=== PATIENT | female | born 1990 | race Caucasian/White ===

== ENCOUNTER 2017-03-19 09:42 | Inpatient (IN) | payer OTHER ==
[~2017-03-19] VITALS: Ht 162.5 cm; Wt 56.8 kg
[2017-03-19 11:00] VITALS: BP 118/61
--- NOTE | 2017-03-19 11:00 | NUR ---
27 year old F admitted to room # 508 for stabilization. Reports an addiction to heroin last used 26 hours prior to admission. Compliant with admission procedure. Patient denies any anxiety, is able to sit still, able to focus eyes on nurse during interview. See assessment forms for additional information about patient status. Dr Wood made aware of firm areas to bilat neck & edematous right hand.
[2017-03-19 11:17] LABS: BASO % 0.7 % (0.0-1.0); EOS # 0.1 10*3/uL (0.0-0.4); EOS % 1.1 % (1.0-4.0); HEMATOCRIT 34.2 % (37.0-47.0); LYMPH # 1.6 10*3/uL (1.3-4.4); LYMPH % 29.7 % (27.0-41.0); MEAN CELL VOLUME 94.2 fl (81.0-99.0); MEAN CORPUSCULAR HGB 30.3 pg (27.0-31.0); MEAN CORPUSCULAR HGB CONC 32.2 g/dl (33.0-37.0); MONO # 0.3 10*3/uL (0.1-1.0); MONO % 6.2 % (3.0-9.0); NEUT # 3.3 10*3/uL (2.3-7.9); NEUT % 62.1 % (47.0-73.0); PLATELET COUNT AUTOMATED 270 10*3/uL (130-400); RED BLOOD COUNT 3.63 10*6/uL (4.10-5.10); WHITE BLOOD COUNT 5.4 10*3/uL (4.8-10.8)
[2017-03-19 11:17] LABS: BILIRUBIN NEGATIVE (NEGATIVE); BLOOD NEGATIVE (NEGATIVE); CLARITY SL CLOUDY (CLEAR); COLOR YELLOW (YELLOW); GLUCOSE NEGATIVE (NEGATIVE); KETONE NEGATIVE (NEGATIVE); LEUKO ESTERASE NEGATIVE (NEGATIVE); NITRITE NEGATIVE (NEGATIVE); SPECIFIC GRAVITY >= 1.030 (1.005-1.030)
[2017-03-19 11:30] LABS: ALBUMIN 3.4 gm/dl (3.1-4.5); ALKALINE PHOSPHATASE 99 U/L (45-117); BUN 13 mg/dl (7-24); CHLORIDE 103 mmol/L (98-107); CREATININE 0.91 mg/dL (0.55-1.02); POTASSIUM 4.1 mmol/L (3.5-5.1); SGOT/AST 39 IU/L (3-35); SGPT/ALT 95 U/L (12-78); SODIUM 138 mmol/L (136-145); TOTAL PROTEIN 8.2 gm/dL (6.4-8.2)
[2017-03-19 11:36] LABS: BETA-HCG, QUANT < 1.0 mIU/mL (1-3); ETHYL ALCOHOL < 3.0 mg/dl (<3)
[2017-03-19 11:44] LABS: URINE AMPHETAMINES < 1000 (1000ng/ml); URINE BARBITURATES < 200 (200ng/ml); URINE BENZODIAZEPINES < 200 (200ng/ml); URINE CANNABINOIDS (THC) < 50 (50ng/ml); URINE COCAINE < 300 (300ng/ml); URINE METHADONE < 300 (300ng/ml); URINE OPIATES > 300 (300ng/ml)
[2017-03-19 11:45] LABS: URINE PHENCYCLIDINE < 25 (25ng/ml)
[2017-03-19 12:12] LABS: BACTERIA TRACE; RBC 0-2 rbc/hpf (0-2); WBC 0-2 wbc/hpf (0-5)
--- NOTE | 2017-03-19 13:06 | NUR ---
Patient reports symptoms of withdrawal Patient given scheduled/PRN medication to control withdrawal symptoms. Close observation will be maintained.
[2017-03-19 16:00] VITALS: BP 107/50
--- NOTE | 2017-03-19 16:48 | NUR ---
Nutritional Support Services Note: No nutrition intervention needed at this time. Regular diet as ordered. Appetite is good. Will follow as needed. Nicole Dunbar
--- NOTE | 2017-03-19 17:45 | NUR ---
Red pea sized areas noted bilateral sides of neck. Patient states they are tender to touch. These areas are not open. Edema noted to right dorsal hand. No open areas noted. No reddness noted to right hand.
[2017-03-19 20:00] VITALS: BP 121/61
--- NOTE | 2017-03-19 22:16 | NUR ---
PRN REQUIP AND TRAZADONE GIVEN FOR PT COMPLAINTS OF RESTLESS LEGS AND SLEEPLESSNESS. CALL LIGHT WITHIN REACH, WILL MONITOR
[2017-03-20] VITALS: BP 99/50
[2017-03-20 04:00] VITALS: BP 104/56
[2017-03-20 08:00] VITALS: BP 109/70; BP 140/65
--- NOTE | 2017-03-20 08:00 | NUR ---
Patient reports the following symptoms of withdrawal: body aches & anxiety. Patient given scheduled/PRN medication to control withdrawal symptoms. Close observation will be maintained.
[2017-03-20 08:16] LABS: HEPATITIS B SURFACE AG Negative (Negative)
--- NOTE | 2017-03-20 08:24 | NUR ---
D/C PLANNING: PATIENT IS PLANNING ON GOING TO [facility] IN [place] FOR HER AFTERCARE PLAN. [facility] WILL PICK PATIENT UP ON THURSDAY. CHAD JOHNSON B.A. CLIENT ADVOCATE
--- NOTE | 2017-03-20 10:37 | NUR ---
Patient resting. Responding to scheduled medications with fewer complaints of withdrawal symptoms.
[2017-03-20 12:00] VITALS: BP 111/86
--- NOTE | 2017-03-20 12:14 | NUR ---
dozing intermittently.
--- NOTE | 2017-03-20 14:27 | NUR ---
D/C PLAN: PATIENT WILL BE PICKED UP BY SAMUEL HUTTON FROM [facility] ON THURSDAY. PATIENT AGREES AND UNDERSTANDS HER AFTERCARE PLAN. CHAD JOHNSON B.A. [employer] DEVELOPER
[2017-03-20 15:29] LABS: HEPATITIS C VIRUS ANTIBODY >11.0 s/co (0.0-0.9)
--- NOTE | 2017-03-20 15:37 | NUR ---
LAB CALLED WITH A CRITICAL: +HEP C ANTIBODY. DR RED NOTIFIED.
[2017-03-20 16:00] VITALS: BP 101/49
[2017-03-20 20:00] VITALS: BP 97/48
[2017-03-21] VITALS: BP 93/47
[2017-03-21 08:00] VITALS: BP 92/46
--- NOTE | 2017-03-21 08:00 | NUR ---
Patient resting. Responding to scheduled medications with fewer complaints of pain and anxiety.
[2017-03-21 12:00] VITALS: BP 98/50
[2017-03-21 16:00] VITALS: BP 106/50
--- NOTE | 2017-03-21 16:00 | NUR ---
Patient resting. Responding to scheduled medications with fewer complaints of pain and anxiety.
--- NOTE | 2017-03-21 18:45 | NUR ---
QUIET DAY NO C/O NO DISTRESS NOTED.
[2017-03-21 20:00] VITALS: BP 99/48
[2017-03-22] VITALS: BP 92/42
[2017-03-22 06:11] LABS: BASO % 0.5 % (0.0-1.0); EOS # 0.2 10*3/uL (0.0-0.4); EOS % 4.5 % (1.0-4.0); HEMATOCRIT 35.2 % (37.0-47.0); HEMOGLOBIN 11.3 g/dl (12.0-16.0); LYMPH % 52.9 % (27.0-41.0); MEAN CELL VOLUME 94.1 fl (81.0-99.0); MEAN CORPUSCULAR HGB 30.2 pg (27.0-31.0); MEAN CORPUSCULAR HGB CONC 32.1 g/dl (33.0-37.0); MEAN PLATELET VOLUME 10.1 fl (9.6-12.3); MONO # 0.3 10*3/uL (0.1-1.0); MONO % 8.8 % (3.0-9.0); NEUT # 1.2 10*3/uL (2.3-7.9); PLATELET COUNT AUTOMATED 239 10*3/uL (130-400); RED BLOOD COUNT 3.74 10*6/uL (4.10-5.10); RED CELL DISTRI WIDTH 14.2 % (0-14.5); WHITE BLOOD COUNT 3.7 10*3/uL (4.8-10.8)
[2017-03-22 06:25] LABS: BUN 15 mg/dl (7-24); CREATININE 0.77 mg/dL (0.55-1.02)
[2017-03-22 08:00] VITALS: BP 86/43
--- NOTE | 2017-03-22 08:00 | NUR ---
Patient resting. Responding to scheduled medications with fewer complaints of pain and anxiety.
[2017-03-22 12:00] VITALS: BP 83/42
[2017-03-22 16:00] VITALS: BP 108/53
--- NOTE | 2017-03-22 19:07 | NUR ---
MEDICATED PO VISTERIL FOR C/O ANXIETY.
[2017-03-22 20:00] VITALS: BP 95/54
--- NOTE | 2017-03-22 20:01 | NUR ---
NICOTINE PATCH APPLIED TO LEFT UPPER ARM AT THIS TIME PER ORDER. PATIENT STATING THAT THE NICOTROL INHALERS WERE INEFFECTIVE IN HELPING HER URGE TO SMOKE. NICOTROL INHALERS COLLECTED AND LOCKED IN WALL CABINET. EXPLAINED TO PATIENT THAT NICOTINE PATCH AND NICOTROL INHALERS MAY NOT BE USED TOGETHER. PATIENT VERBALIZES UNDERSTANDING. NO OTHER COMPLAINTS VERBALIZED AT THIS TIME. WILL CONTINUE TO MONITOR. CALL LIGHT IN REACH.
--- NOTE | 2017-03-22 22:53 | NUR ---
PATIENT MEDICATED WITH PO REQUIP AND PO TRAZODONE PER PRN ORDER FOR C/O RESTLESS LEGS AND SLEEPLESSNESS. WILL MONITOR EFFECTIVENESS. CALL LIGHT LEFT IN REACH.
--- NOTE | 2017-03-22 23:40 | NUR ---
EARLIER MEDICATION APPEARS EFFECTIVE. PATIENT ASLEEP IN BED. WILL CONTINUE TO MONITOR. CALL LIGHT LEFT IN REACH.
[2017-03-23] VITALS: BP 90/50
[2017-03-23 04:00] VITALS: BP 89/45
--- NOTE | 2017-03-23 04:19 | NUR ---
PATIENT ASLEEP IN BED. RESPIRATIONS EASY. NO S/S OF DISTRESS NOTED. WILL MONITOR. CALL LIGHT IN REACH.
[2017-03-23 08:00] VITALS: BP 98/60
--- NOTE | 2017-03-23 08:00 | NUR ---
PT C/O ANXIETY. MEDICATED WITH VISTARIL PO PER PRN ORDER, SEE EMAR. CALL LIGHT IN REACH. SEE SHIFT ASSESSMENT.
--- NOTE | 2017-03-23 08:40 | NUR ---
RESTIN GIN BED. STATES MEDICATION HELPS. CALL LIGHT IN REACH.
[2017-03-23] MEDS ORDERED: ZOFRAN 4 MG ED2 TAB PO (10:43)
[2017-03-23] MEDS ORDERED: NICODERM T (10:43)
[2017-03-23] MEDS ORDERED: NATURE'S BLEND F1 MG PO (10:43)
[2017-03-23] MEDS ORDERED: ATARAX,VISTARIL50 MG PO (10:43)
[2017-03-23] MEDS ORDERED: DOXYCYCLINE100 M3 PO (10:43)
[2017-03-23] MEDS ORDERED: NICODERM CQ1 EAC2 T (10:50)
[2017-03-23] MEDS ORDERED: NICODERM CQ1 EAC1 T (10:50)
[2017-03-23] MEDS ORDERED: NICODERM CQ1 EACH T (10:50)
[2017-03-23 12:00] VITALS: BP 105/46
--- NOTE | 2017-03-23 14:30 | NUR ---
PT RESTING IN BED. WAITING FOR RIDE FOR DISCHARGE TO [facility]. CALL LIGHT IN REACH.
--- NOTE | 2017-03-23 16:00 | NUR ---
PT AMBULATORY OFF THE FLOOR FOR DISCHARGE. VERBALIZED UNDERSTANDING OF DISCHARGE INSTRUCTIONS. HEPLOCK REMOVED 2X2 APPLIED.
== END 2017-03-23 16:00 | disposition home or self-care (01) | DRG 897 ==
LOC: 5E 09:42
PROVIDERS: Internal Medicine; ADMIT Internal Medicine
DX: F11.23 Opioid dependence with withdrawal (principal); D64.9 Anemia, unspecified; L03.113 Cellulitis of right upper limb; F32.9 Major depressive disorder, single episode, unspecified; R74.0 Nonspecific elevation of levels of transaminase and lactic acid dehydrogenase [LDH]; F41.9 Anxiety disorder, unspecified; G25.81 Restless legs syndrome; Z71.6 Tobacco abuse counseling; Z72.0 Tobacco use; Z88.6 Allergy status to analgesic agent

== ENCOUNTER 2017-06-15 10:20 | Inpatient (IN) | payer OTHER ==
[~2017-06-15] VITALS: Ht 162.6 cm; Wt 56.7 kg
[~2017-06-15 10:20] MED LIST: ATARAX,VISTARIL50 MG PO; DOXYCYCLINE100 M3 PO; NATURE'S BLEND F1 MG PO; NICODERM CQ1 EAC1 T; NICODERM CQ1 EAC2 T; NICODERM CQ1 EACH T; NICODERM T; ZOFRAN 4 MG ED2 TAB PO
[2017-06-15] MEDS ORDERED: NEURONTIN300 MG PO (11:42)
[2017-06-15 12:30] VITALS: BP 122/68
[2017-06-15 13:00] LABS: HEMATOCRIT 33.1 % (37.0-47.0); HEMOGLOBIN 10.9 g/dl (12.0-16.0); MEAN CORPUSCULAR HGB 29.3 pg (27.0-31.0); MEAN CORPUSCULAR HGB CONC 32.9 g/dl (33.0-37.0); MEAN PLATELET VOLUME 8.9 fl (9.6-12.3); PLATELET COUNT AUTOMATED 222 10*3/uL (130-400); RED BLOOD COUNT 3.72 10*6/uL (4.10-5.10); WHITE BLOOD COUNT 6.9 10*3/uL (4.8-10.8)
[2017-06-15 13:15] LABS: ALBUMIN 3.3 gm/dl (3.1-4.5); ALKALINE PHOSPHATASE 109 U/L (45-117); BUN 7 mg/dl (7-24); CHLORIDE 103 mmol/L (98-107); CREATININE 0.68 mg/dL (0.55-1.02); POTASSIUM 4.1 mmol/L (3.5-5.1); SGOT/AST 31 IU/L (3-35); SGPT/ALT 27 U/L (12-78); SODIUM 138 mmol/L (136-145); TOTAL PROTEIN 8.5 gm/dL (6.4-8.2)
[2017-06-15 13:17] LABS: URINE AMPHETAMINES > 1000 (1000ng/ml); URINE BARBITURATES < 200 (200ng/ml); URINE BENZODIAZEPINES < 200 (200ng/ml); URINE CANNABINOIDS (THC) < 50 (50ng/ml); URINE COCAINE > 300 (300ng/ml); URINE METHADONE < 300 (300ng/ml); URINE OPIATES > 300 (300ng/ml)
[2017-06-15 13:20] LABS: ATYPICAL LYMPHS 11 % (0-0); PLATELET SUFFICIENCY NORMAL (NORMAL); TOTAL CELLS COUNTED 100 #CELLS
[2017-06-15 13:29] LABS: URINE PHENCYCLIDINE < 25 (25ng/ml)
[2017-06-15 13:29] LABS: BETA-HCG, QUANT < 1.0 mIU/mL (1-3); ETHYL ALCOHOL < 3.0 mg/dl (<3)
[2017-06-15 16:00] VITALS: BP 126/69
[2017-06-15 20:00] VITALS: BP 125/72
[2017-06-16] VITALS: BP 102/55
[2017-06-16 07:45] VITALS: BP 116/72
[2017-06-16 12:15] VITALS: BP 114/80
[2017-06-16 16:00] VITALS: BP 97/55
[2017-06-16 20:00] VITALS: BP 91/50
[2017-06-17] VITALS: BP 100/52
[2017-06-17 08:00] VITALS: BP 95/51
[2017-06-17 12:00] VITALS: BP 107/61
[2017-06-17 16:00] VITALS: BP 98/49
[2017-06-17 20:00] VITALS: BP 95/44
[2017-06-18] VITALS: BP 100/52
[2017-06-18 06:10] LABS: CREATININE 0.69 mg/dL (0.55-1.02)
[2017-06-18 06:13] LABS: HEMATOCRIT 30.4 % (37.0-47.0); HEMOGLOBIN 9.6 g/dl (12.0-16.0); MEAN CELL VOLUME 91.8 fl (81.0-99.0); MEAN CORPUSCULAR HGB CONC 31.6 g/dl (33.0-37.0); MEAN PLATELET VOLUME 9.5 fl (9.6-12.3); PLATELET COUNT AUTOMATED 232 10*3/uL (130-400); RED BLOOD COUNT 3.31 10*6/uL (4.10-5.10); RED CELL DISTRI WIDTH 15.5 % (0-14.5); WHITE BLOOD COUNT 8.7 10*3/uL (4.8-10.8)
[2017-06-18 07:24] LABS: ATYPICAL LYMPHS 2 % (0-0); TOTAL CELLS COUNTED 100 #CELLS
[2017-06-18 07:25] LABS: PLATELET SUFFICIENCY NORMAL (NORMAL); ROULEAUX MODERATE
[2017-06-18 08:00] VITALS: BP 97/56
[2017-06-18] MEDS ORDERED: ATARAX,VISTARIL50 MG PO (10:13)
[2017-06-18] MEDS ORDERED: ZOFRAN 4 MG ED2 TAB PO (10:13)
[2017-06-18] MEDS ORDERED: ROPINIROLE HYD0.5 MG PO (10:13)
== END 2017-06-18 10:24 | disposition home or self-care (01) | DRG 897 ==
LOC: 4E 10:20
PROVIDERS: Emergency Medicine; Internal Medicine
DX: F11.23 Opioid dependence with withdrawal (principal); R65.10 Systemic inflammatory response syndrome (SIRS) of non-infectious origin without acute organ dysfunction; D64.9 Anemia, unspecified; T14.8XXA Other injury of unspecified body region, initial encounter; F14.10 Cocaine abuse, uncomplicated; B19.20 Unspecified viral hepatitis C without hepatic coma; F15.10 Other stimulant abuse, uncomplicated; F17.200 Nicotine dependence, unspecified, uncomplicated; F19.10 Other psychoactive substance abuse, uncomplicated; F41.9 Anxiety disorder, unspecified; G25.81 Restless legs syndrome; F32.9 Major depressive disorder, single episode, unspecified; Z88.6 Allergy status to analgesic agent; Z79.899 Other long term (current) drug therapy; Z71.6 Tobacco abuse counseling; Z86.19 Personal history of other infectious and parasitic diseases; X58.XXXA Exposure to other specified factors, initial encounter; Y93.89 Activity, other specified; Y92.89 Other specified places as the place of occurrence of the external cause; Y99.8 Other external cause status